=== PATIENT | male | born 1995 | race African-American/Black ===

== ENCOUNTER 2023-03-15 13:48 | Emergency (ER) | payer OTHER, SELFPAY ==
[2023-03-15 13:47] VITALS: BP 136/87; PULSE 95; RESP 18; TEMP 36.9; O2SAT 99
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
== END 2023-03-15 14:52 | disposition home or self-care (01) ==
LOC: ANHED 14:44
PROVIDERS: Emergency Provider Physician Assistant
DX: Z04.1 Encounter for examination and observation following transport accident (principal); V49.40XA Driver injured in collision with unspecified motor vehicles in traffic accident, initial encounter
CPT/HCPCS: 99282